=== PATIENT | male | born 1960 | race Caucasian/White ===

== ENCOUNTER 2016-06-29 03:26 | Emergency (ER) | payer BC, OTHER ==
--- NOTE | 2016-06-29 03:54 | EDM.PDOC ---
ED HPI Trauma - General Chief Complaint: Lower Extremity Injury/Pain Stated Complaint: INJURY TO LEFT FOOT Time Seen by Provider: 06/29/16 03:44 Source: Reports: Patient History Limitations: Reports: No limitations - History of Present Illness INITIAL COMMENTS - FREE TEXT/NARRATIVE: 56-year-old male arrives in the ED in the accompaniment of his . Patient reports that he went to bed about 10:00 and slept well until about 12:30 when he woke with severe pain in his left leg. States he feels like her something standing on the top of his dorsal foot radiates along the medial aspect of his leg and posterior aspect of his leg up to the left medial groin area. He knows of no injuries. No slips or falls. He did use a pillow bike exercise machine and ALT, Chasidy 2 days ago but is otherwise doesn't hurt at all. Pain is sharp shooting and worsens with certain position changes of the legs such as flexing the knee and flexing at the hip. No pain in his back. There is some paresthesias in the in in the dorsal aspect of his foot area. Pain is currently 10 out of 10.has had previous surgery on his left foot and sometimes limps when he's been walking for a period of time. However the foot has been gradually getting better. Symptom Onset Date: 06/29/16 Symptom Onset Time: 00:30 Occurred When: this morning Occurred Where: home (pain awoke him from sleep.) Method of Injury: other (no known injuries.) Severity: severe (pain 10 out of 10.) Pain/Injury Location: Reports: lower extremity, left (I her left lower chimney from dorsal foot up to the left medial groin.) Associated Symptoms: Reports: no other symptoms. Denies: headache, lightheadedness, muscle spasms, neck pain, ringing in ears, seizures, shortness of breath Allergies/ADRs: Allergies No Known Allergies Allergy (Verified 06/29/16 03:41) Home Medications: Ambulatory Orders Diclofenac Sodium [Voltaren] 50 mg PO TIDMEALS #24 tab.ec 06/29/16 Rosuvastatin [Crestor] 10 mg PO ASDIRECTED 06/29/16 [Confirmed 06/29/16] oxyCODONE HCl/Acetaminophen [Percocet 5-325 mg Tablet] 1 - 2 each PO Q4H PRN # 20 tablet 06/29/16 Past Medical History Cardiovascular History: Reports: High cholesterol, [place] - Infectious Disease History Infectious Disease History: Reports: Chicken pox (as a child) - Past Surgical History Musculoskeletal Surgical History: Reports: Shoulder surgery, Other (see below) Other Musculoskeletal Surgeries/Procedures:: "foot surgery" Social & Family History - Tobacco Use Smoking Status *Q: Never Smoker - Caffeine Use Caffeine Use: Reports: None - Recreational Drug Use Recreational Drug Use: No - Living Situation & Occupation Living situation: Reports: Occupation: employed (works for [employer]) Review of Systems - Review of Systems Review Of Systems: See Below Constitutional: Reports: no symptoms Eyes: Reports: no symptoms Ears: Reports: no symptoms Nose: Reports: no symptoms Mouth/Throat: Reports: no symptoms Respiratory: Reports: no symptoms Cardiovascular: Reports: no symptoms GI/Abdominal: Reports: No symptoms Genitourinary: Reports: no symptoms Musculoskeletal: Reports: leg pain (entire left leg hurts from dorsal foot to left groin. See history of present illness) Skin: Reports: no symptoms Neurological: Reports: paresthesia (some paresthesias dorsal aspect of the left foot) Psychiatric: Reports: no symptoms ( the) Trauma Exam - Physical Exam Exam: See Below Exam Limited By: No limitations General Appearance: Reports: alert, WD/WN, moderate distress (in obvious discomfort and he can hardly put any weight on his left foot. It seems to be worse when he stretches out his Achilles tendon.) Head: Reports: atraumatic, normocephalic Cardiovascular: Reports: normal peripheral pulses, regular rate, rhythm, no edema, no murmur, other (in particular the pulses to the dorsal aspect of the left foot are completely normal both posterior tibialis and dorsalis pedis.) GI/Abdominal: Reports: normal bowel sounds, soft, non tender, no organomegaly, other (abdominal pain could be elicited.). Denies: distended, tenderness, guarding, rebound (Male) Exam: No hernia Back: Reports: full range of motion, normal inspection, non-tender, CVA tenderness (R), CVA tenderness (L), decreased range of motion, other (no tenderness in either SI joint.) Extremities: Reports: no evidence of injury, normal range of motion (has full range of motion but certain movements such as flexion of the knee and flexion of the hip make the pain shoot down the leg any more severe fashion.), pain with movement, unable to bear weight (able to put any weight on his left foot due to pain in her dorsal foot and along the medial posterior aspect of his leg up to the groin.). Denies: no pedal edema, pelvis stable, bony-point tenderness , joint effusion, pedal edema, tenderness Neurologic: Reports: no motor/sensory deficits, normal mood/affect, oriented x 3 Skin: Reports: Normal color, Warm/dry - Liam Coma Score Best Eye Response (Othello): (4) open spontaneously Best Verbal Response (Liam): (5) oriented Best Motor Response (Liam): (6) obeys commands Liam Total: 15 Course - Vital Signs Last Recorded V/S: Last Vital Signs Temp 37.0 C 06/29/16 03:39 Pulse 65 06/29/16 05:22 Resp 16 06/29/16 05:22 BP 138/93 H 06/29/16 05:22 Pulse Ox 98 06/29/16 05:22 - Orders/Labs/Meds Orders: Active Orders 24 hr Category Date Time Status Femur Min 2V Lt [CR] Stat Exams 06/29/16 04:02 Taken Tibia Fibula Lt [CR] Stat Exams 06/29/16 04:02 Taken VL Duplex Lwr Ext Veins Ltd Lt [US] Stat Exams 06/29/16 04:03 Taken Ketorolac [Toradol] Med 06/29/16 04:15 Active 30 mg IVPUSH ONETIME Sodium Chloride 0.9% [Normal Saline] 1,000 ml Med 06/29/16 04:00 Active IV ASDIRECTED Medication Orders Sodium Chloride (Normal Saline) 1,000 mls @ 100 mls/hr IV ASDIRECTED LAQUITA Last Admin: 06/29/16 04:22 Dose: 100 mls/hr Ketorolac Tromethamine (Toradol) 30 mg IVPUSH ONETIME LAQUITA Last Admin: 06/29/16 04:19 Dose: 30 mg Labs: Laboratory Tests 06/29/16 06/29/16 06/29/16 Range/Units 04:10 04:10 04:10 WBC 9.30 H (4.23-9.07) K/mm3 RBC 5.25 (4.63-6.08) M/mm3 Hgb 15.6 (13.7-17.5) gm/L Hct 45.4 (40.1-51.0) % MCV 86.5 (79.0-92.2) fl MCH 29.7 (25.7-32.2) pg MCHC 34.4 (32.2-35.5) g/dl RDW Std Deviation 40.0 (35.1-43.9) fL Plt Count 188 (163-337) K/mm3 MPV 9.4 (9.4-12.3) fl Neutrophils % (Manual) 61 H (40-60) % Band Neutrophils % 0 (0-10) % Lymphocytes % (Manual) 32 (20-40) % Atypical Lymphs % 0 % Monocytes % (Manual) 5 (2-10) % Eosinophils % (Manual) 2 (0.8-7.0) % Basophils % (Manual) 0 L (0.2-1.2) Platelet Estimate Adequate Plt Morphology Comment Normal RBC Morph Comment Normal PT 10.0 (8.0-13.0) SECONDS INR 0.92 D-Dimer, Quantitative 0.21 (0.19-0.59) mg/L Sodium 141 (136-145) mEq/L Potassium 4.2 (3.5-5.1) mEq/L Chloride 108 H (98-107) mEq/L Carbon Dioxide 24 (21-32) mEq/L Anion Gap 13.2 (5-15) BUN 26 H (7-18) mg/dL Creatinine 0.9 (0.7-1.3) mg/dL Est Cr Clr Drug Dosing 96.88 mL/min Estimated GFR (MDRD) > 60 (>60) mL/min BUN/Creatinine Ratio 28.9 H (14-18) Glucose 120 H (74-106) mg/dL Uric Acid 4.6 (3.5-7.2) mg/dL Calcium 10.1 (8.5-10.1) mg/dL Total Bilirubin 0.2 (0.2-1.0) mg/dL AST 36 (15-37) U/L ALT 97 H (16-63) U/L Alkaline Phosphatase 80 (46-116) U/L Total Protein 7.2 (6.4-8.2) g/dl Albumin 4.0 (3.4-5.0) g/dl Globulin 3.2 gm/dL Albumin/Globulin Ratio 1.3 (1-2) Meds: Medications Generic Name Dose Route Start Last Admin Trade Name Silvina PRN Reason Stop Dose Admin Sodium Chloride 1,000 mls @ 100 mls/hr 06/29/16 04:00 06/29/16 04:22 Normal Saline IV 100 mls/hr ASDIRECTED LAQUITA Administration Ketorolac Tromethamine 30 mg 06/29/16 04:15 06/29/16 04:19 Toradol IVPUSH 30 mg ONETIME LAQUITA Administration Discontinued Medications Generic Name Dose Route Start Last Admin Trade Name Silvina PRN Reason Stop Dose Admin Hydromorphone HCl 1 mg 06/29/16 04:00 06/29/16 04:16 Dilaudid IVPUSH 06/29/16 04:01 1 mg ONETIME ONE Administration Metoclopramide HCl 10 mg 06/29/16 04:01 06/29/16 04:12 Reglan IVPUSH 06/29/16 04:02 10 mg ONETIME ONE Administration - Radiology Interpretation Free Text/Narrative:: 56-year-old male presents the ED with a most unusual presentation. He reports he went to sleep at 10:00 last night and was feeling fine. Oral from sleep around 12:30 with severe pain in his entire left lower cavity. Seems to start in the medial aspect of the left groin and radiates all the way down the foot to the dorsal aspect of the foot. At times he feels as if somebody is stepping on top of his foot. Hardly able to put any weight on the foot as when he does dorsiflexion of the foot it seems to make the pain much worse. Similar to pain worse with full flexion at the knee or full flexion at the hip suggesting a muscle-splitting source. This most unusual to radiate in separate places for no apparent reason. The pain most likely is neurogenic in origin. He would be a knee lumbar 3-4 distribution.pain is intense he rates a 10 on a 10. There is no sign of any embolus to the foot or left lower chest remedied. Good color and good pulses. There is no swelling or edema to suggest DVT. Mild tenderness along palpation of the medial gastrocnemius muscle. I cannot localize pain to either hamstring or quadriceps tendons. Plan IV will be started at normal saline 100 mils per hour. Given 1 mg of Dilaudid for pain relief with Reglan 10 mg IV and Toradol 30 mg IV for pain relief. A going to x-ray the femur and the tib-fib to make sure there are no occult bone abnormalities although this would be very rare. DVT ultrasound will be performed on the left extremity as well to rule out a DVT. Labs were ordered to include a d-dimer and uric acid. His pain may well be neurogenic in normal have to watch out for the development of shingles in the next 4-5 days. - Re-Assessments/Exams Free Text/Narrative Re-Assessment/Exam: 06/29/16 04:50 x-rays of the femur knee tib-fib and most of the midfoot that I can visualize are completely normal. Also portions of the left hemipelvis appear normal. Pain apparently is quite a bit better after the IV Dilaudid. He is currently in the ultrasound suite. 06/29/16 05:05ultrasound was reported by the biomedical engineering technician to be completely normal in the entire left leg. This would correlate with his d-dimer that came back at less than 0.21. Hematology is normal. White count is 9.3. Hemoglobin 15.6 platelets 180,000. Coags are normal. Awaiting the chemistry and the CRP 06/29/16 05:29 chemistry was essentially normal as well. Sodium 141 potassium 4.2 chloride 108 bicarbonate 24. Anion gap is 13.2. Glucose is 120. ALT was mildly elevated at 97. Therefore no metabolic abnormality was identified to cause his neurogenic pain and left lower extremity. The etiology of his pain remains unclear at this time. It appears to be neurogenic and not coming from his back. It appears to be following the L3-L4 nerve root distribution dermatome. Patient advised to keep it out for development of shingles rash over the next 5-7 days. In the meantime I will place him on Percocet tabs 5 325 one or 2 every 4-6 hours needed for pain relief x20 tabs. Voltaren 50 mg 3 times a day with meals x8 days. He will follow up with his personal care physician or return to the ER if condition worsens in any way or fails to improve in 7 days time. Departure - Departure Time of Disposition: 05:22 Disposition: Home, Self-Care 01 Condition: fair Clinical Impression: Neurogenic pain of left lower extremity Prescriptions: Diclofenac Sodium [Voltaren] 50 mg PO TIDMEALS #24 tab.ec oxyCODONE HCl/Acetaminophen [Percocet 5-325 mg Tablet] 1 - 2 each PO Q4H PRN # 20 tablet PRN Reason: pain relief. Instructions: Neuropathic Pain Referrals: PCP,Not In Area [Primary Care Provider] - Forms: ED Department Discharge, Return to Work/School Form Additional Instructions: evaluation in the emergency room tonight in regards to awakening from sleep with severe pain in the left lower extremity. Pain travels from the medial left groin down the inside and posterior aspect of the leg to the foot. Pain is described as sharp burning and shooting or lancinating. This suggests nerve inflammationfor unclear reasons. X-rays of the femur the left hemipelvis and the lower leg were done including most of the foot and no bony abnormalities are evident. Ultrasound of the leg was done to rule out any blood clots and none were found. Similarly screening test for blood clots rate clotting the body turned out to be negative. Normal white count normal red cell count. Normal chemistry there for no other reason could be identified as to the cause of your pain. The severity of the pain strongly suggest I nerve or neurogenic source. Pain is following the lumbar 3 IV nerve root dermatome that supplies the skin along the inside and back of the leg. Sometimes shingles Will start out this way with severe pain with rash developing 4-5 days later. Therefore monitor for any rash development over the next week. If the rash recurs she'll need to return to medical care to get antiviral medication. In the meantime activity as tolerated. Suggest use of Voltaren 50 mg 3 times daily for the next 8 days to relieve pain and inflammation. Start her pain medication Percocet 5 325 mg tabs one or 2 every 4-6 hours as needed for pain relief. However if these tablets are required for pain relief he cannot operate a motor vehicle or operate machinery etc. followup with personal care physician or return to the ED if pain is not markedly improved in 3-5 days duration or sooner if the pain worsens. - My Orders Last 24 Hours: My Active Orders 06/29/16 04:00 Sodium Chloride 0.9% [Normal Saline] 1,000 ml IV ASDIRECTED 06/29/16 04:02 Femur Min 2V Lt [CR] Stat Tibia Fibula Lt [CR] Stat 06/29/16 04:03 VL Duplex Lwr Ext Veins Ltd Lt [US] Stat 06/29/16 04:15 Ketorolac [Toradol] 30 mg IVPUSH ONETIME - Assessment/Plan Last 24 Hours: My Active Orders 06/29/16 04:00 Sodium Chloride 0.9% [Normal Saline] 1,000 ml IV ASDIRECTED 06/29/16 04:02 Femur Min 2V Lt [CR] Stat Tibia Fibula Lt [CR] Stat 06/29/16 04:03 VL Duplex Lwr Ext Veins Ltd Lt [US] Stat 06/29/16 04:15 Ketorolac [Toradol] 30 mg IVPUSH ONETIME
[2016-06-29] MEDS ORDERED: Sodium Chloride 0.9% 1,000 ML IV SCH (04:00)
[2016-06-29] MEDS ORDERED: HYDROmorphone 1 MG/ML Syringe IVPUSH ONE (04:00)
[2016-06-29] MEDS ORDERED: Metoclopramide 10 MG/2 ML SDV IVPUSH ONE (04:01)
[2016-06-29] MEDS ORDERED: Ketorolac 30 MG/ML SDV IVPUSH SCH (04:15)
[2016-06-29 05:25] VITALS: BP 138/93
--- NOTE | 2016-06-29 07:08 | US ---
Left lower extremity deep venous ultrasound: Duplex and color flow imaging was obtained of the left common femoral, proximal greater saphenous, superficial femoral, popliteal, posterior tibial and peroneal veins. Right common femoral vein also evaluated. Comparison: No previous venous study. Findings: Normal phasic flow, augmentation and compression are seen. Impression: 1. No findings of deep venous thrombosis seen within the left lower extremity or within the right common femoral vein. Diagnostic code #1
--- NOTE | 2016-06-29 07:20 | CR ---
Left tibia and fibula: AP and lateral views of the left tibia and fibula were obtained. Comparison: No previous study. Plantar spur is seen. Calcification noted within the distal Achilles tendon at its attachment to the calcaneus as an incidental note. No acute fracture or other abnormality is seen. Impression: 1. Calcaneal spurs. 2. Left tibia and fibula study is otherwise unremarkable. Diagnostic code #2
--- NOTE | 2016-06-29 07:33 | CR ---
Left femur: AP and lateral views of the left femur were obtained. Comparison: No previous femur study. Small spur at the attachment of the quadriceps tendon to the patella is incidentally noted. Joint space within the left hip and within the knee are preserved. No acute fracture or other abnormality is seen. Impression: 1. Small patellar spur. 2. Nothing acute identified on two-view left femur study. Diagnostic code #2
== END 2016-06-29 05:30 | disposition home or self-care (01) ==
LOC: JD.ED 03:26
DX: M79.605 Pain in left leg (principal); E78.00 Pure hypercholesterolemia, unspecified; I25.2 Old myocardial infarction; Z79.899 Other long term (current) drug therapy
CPT/HCPCS: 36415; 73552; 73590; 80053; 84550; 85025; 85379; 85610; 93971; 96361; 96374; 96375; 99284; J1170; J1885; J2765; J7040

== ENCOUNTER 2020-08-23 19:45 | Emergency (ER) | payer OTHER ==
[2020-08-23] MEDS ORDERED: Sodium Chloride 0.9% 10 ML Syringe FLUSH PRN (20:30)
--- NOTE | 2020-08-23 21:29 | EDM.PDOC ---
ED HPI GENERAL MEDICAL PROBLEM - General Chief Complaint: Respiratory Problem Stated Complaint: HEAD PAIN EYE PAIN GUILLERMINA HANSEN 4DAYS Time Seen by Provider: 08/23/20 20:14 Source of Information: Reports: Patient History Limitations: Reports: No Limitations, Other (ED vital signs reveal a temp of 96.9, pulse of 93, respiratory rate of 16, blood pressure 135/91, pulse ox 95% on room air) - History of Present Illness INITIAL COMMENTS - FREE TEXT/NARRATIVE: 60-year-old male presents the emergency department with a 4-day history of headache, fatigue, chills, decreased appetite, shortness of breath with exertion, and generalized body aches. He states this started about 4 days ago with a headache that he noted behind both of his eyes he states the headache radiates to the frontal portion of his head and to the top. He states that the top of his head is even sensitive to touch. He states this then progressed into fatigue, decreased appetite. He developed shortness of breath approximately 3 days ago. He states he notices even when he walks a short distance he is winded. He also states he has been unable to really eat or drink anything. He denies any nausea, vomiting, abdominal pain or diarrhea. Of note he does have a history of hypertension for which he no longer takes any of his medications. Denies any increased swelling in his feet or ankles. Denies orthopnea. He has not had Covid. He has not had his Covid vaccine. Headache Pain Score (Numeric/FACES): 8 - Related Data Allergies Allergy/AdvReac Type Severity Reaction Status Date / Time No Known Allergies Allergy Verified 08/23/20 19:57 Home Meds: Home Meds Rosuvastatin [Crestor] 10 mg PO WEEKLY 06/29/16 [History] Aspirin [Ecotrin EC] 81 mg PO DAILY 08/23/20 [History] Past Medical History Cardiovascular History: Reports: High Cholesterol, [place] - Infectious Disease History Infectious Disease History: Reports: Chicken Pox - Past Surgical History HEENT Surgical History: Reports: Naso-Sinus Surgery, Other (See Below) Other HEENT Surgeries/Procedures: throat surgery Cardiovascular Surgical History: Reports: Other (See Below) Other Cardiovascular Surgeries/Procedures: angiogram GI Surgical History: Reports: Hernia Repair/Other Musculoskeletal Surgical History: Reports: Shoulder Surgery, Other (See Below) Other Musculoskeletal Surgeries/Procedures:: "foot surgery" Social & Family History - Tobacco Use Tobacco Use Status *Q: Never Tobacco User Second Hand Smoke Exposure: No - Caffeine Use Caffeine Use: Reports: None - Recreational Drug Use Recreational Drug Use: No - Living Situation & Occupation Living situation: Reports: Occupation: Employed ED ROS GENERAL - Review of Systems Review Of Systems: See Below Constitutional: Reports: Chills, Malaise, Fatigue, Decreased Appetite. Denies: Fever HEENT: Reports: No Symptoms Respiratory: Reports: Shortness of Breath, Cough (With exertion). Denies: Wheezing, Pleuritic Chest Pain, Sputum Cardiovascular: Reports: Dyspnea on Exertion. Denies: Chest Pain, Edema, Orthopnea, Palpitations Endocrine: Reports: Fatigue GI/Abdominal: Reports: Decreased Appetite. Denies: Abdominal Pain, Constipation, Diarrhea, Nausea, Vomiting : Reports: No Symptoms Musculoskeletal: Reports: Other (Generalized body aches) Skin: Reports: No Symptoms Neurological: Reports: Headache (Behind his eyes, frontal and top of his head) Psychiatric: Reports: No Symptoms Hematologic/Lymphatic: Reports: No Symptoms Immunologic: Reports: No Symptoms ED EXAM, GENERAL - Physical Exam Exam: See Below Exam Limited By: No Limitations General Appearance: Alert, WD/WN, No Apparent Distress Eye Exam: Bilateral Eye: PERRL Ears: Normal External Exam, Hearing Grossly Normal Nose: Normal Inspection Throat/Mouth: Normal Inspection, Normal Lips, Normal Voice, No Airway Compromise Head: Atraumatic, Normocephalic Neck: Normal Inspection, Supple, Non-Tender, Full Range of Motion Respiratory/Chest: No Respiratory Distress, Normal Breath Sounds, No Accessory Muscle Use, Chest Non-Tender, Crackles (Crackles noted to right middle lobe). No: Lungs Clear Cardiovascular: Normal Peripheral Pulses, Regular Rate, Rhythm, No Edema, No Murmur Peripheral Pulses: 2+: Radial (L), Radial (R) GI/Abdominal: Normal Bowel Sounds, Soft, Non-Tender, No Distention (Male) Exam: Deferred Rectal (Males) Exam: Deferred Back Exam: Normal Inspection, Full Range of Motion Extremities: Normal Inspection, Normal Range of Motion, Non-Tender, No Pedal Edema, Normal Capillary Refill Neurological: Alert, Oriented, Normal Cognition Psychiatric: Normal Affect, Normal Mood Skin Exam: Warm, Dry, Intact, Normal Color Lymphatic: No Adenopathy #1 Interpretation EKG Date: 08/23/20 Time: 20:04 Rhythm: NSR Rate (Beats/Min): 93 [place]: Normal P-Wave: Present QRS: Normal ST-T: Normal QT: Normal Comparison: NA - No Prior EKG EKG Interpretation Comments: Per Dr. Gloria interpretation: sinus rhythim @ 93; short pr interval Course - Vital Signs Text/Narrative:: 60-year-old male who presents with 4-day history of headache, shortness of breath, cough, fatigue, generalized body aches, and decreased appetite. Patient has not had Covid this year nor is he had the Covid vaccination. I have ordered labs, EKG, chest x-ray and Covid, influenza A and influenza B swabs. Last Recorded V/S: Last Vital Signs Temp 96.9 F 08/23/20 19:55 Pulse 93 08/23/20 19:55 Resp 16 08/23/20 19:55 BP 135/91 H 08/23/20 19:55 Pulse Ox 95 08/23/20 19:55 - Orders/Labs/Meds Orders: Active Orders 24 hr Category Date Time Status EKG 12 Lead [EKG Documentation Completion] [RC] STAT Care 08/23/20 20:01 Active Chest 1V Frontal [CR] Stat Exams 08/23/20 20:30 Taken Sodium Chloride 0.9% [Saline Flush] Med 08/23/20 20:30 Active 10 ml FLUSH ASDIRECTED PRN Saline Lock Insert [OM.PC] Stat Oth 08/23/20 20:30 Ordered Medication Orders Sodium Chloride (Sodium Chloride 0.9% 10 Ml Syringe) 10 ml FLUSH ASDIRECTED PRN PRN Reason: Keep Vein Open Last Admin: 08/23/20 20:45 Dose: 10 ml Documented by: ELAINE Labs: Laboratory Tests 08/23/20 08/23/20 08/23/20 Range/Units 20:40 20:40 20:40 WBC 2.99 L (4.23-9.07) K/mm3 RBC 5.46 (4.63-6.08) M/mm3 Hgb 16.0 (13.7-17.5) gm/dl Hct 47.3 (40.1-51.0) % MCV 86.6 (79.0-92.2) fl MCH 29.3 (25.7-32.2) pg MCHC 33.8 (32.2-35.5) g/dl RDW Std Deviation 40.4 (35.1-43.9) fL Plt Count 124 L D (163-337) K/mm3 MPV 9.6 (9.4-12.3) fl Neut % (Auto) 35.1 (34.0-67.9) % Lymph % (Auto) 52.2 (21.8-53.1) % [place] % (Auto) 11.4 (5.3-12.2) % Eos % (Auto) 0.3 L (0.8-7.0) Baso % (Auto) 0.7 (0.1-1.2) % Neut # (Auto) 1.05 L (1.78-5.38) K/mm3 Lymph # (Auto) 1.56 (1.32-3.57) K/mm3 [place] # (Auto) 0.34 (0.30-0.82) K/mm3 Eos # (Auto) 0.01 L (0.04-0.54) K/mm3 Baso # (Auto) 0.02 (0.01-0.08) K/mm3 Manual Slide Review Abnormal smear D-Dimer, Quantitative 0.31 (0.19-0.50) mg/L Sodium (136-145) mEq/L Potassium (3.5-5.1) mEq/L Chloride (98-107) mEq/L Carbon Dioxide (21-32) mEq/L Anion Gap (5-15) BUN (7-18) mg/dL Creatinine (0.7-1.3) mg/dL Est Cr Clr Drug Dosing mL/min Estimated GFR (MDRD) (>60) mL/min BUN/Creatinine Ratio (14-18) Glucose (74-106) mg/dL Calcium (8.5-10.1) mg/dL Magnesium (1.8-2.4) mg/dl Total Bilirubin (0.2-1.0) mg/dL AST (15-37) U/L ALT (16-63) U/L Alkaline Phosphatase (46-116) U/L Troponin I (0.00-0.056) ng/mL C-Reactive Protein (<1.0) mg/dL Total Protein (6.4-8.2) g/dl Albumin (3.4-5.0) g/dl Globulin gm/dL Albumin/Globulin Ratio (1-2) Influenza Type A RNA Negative (NEGATIVE) Influenza Type B RNA Negative (NEGATIVE) SARS-CoV-2 RNA (SUSANA) Positive H (NEGATIVE) 08/23/20 Range/Units 20:40 WBC (4.23-9.07) K/mm3 RBC (4.63-6.08) M/mm3 Hgb (13.7-17.5) gm/dl Hct (40.1-51.0) % MCV (79.0-92.2) fl MCH (25.7-32.2) pg MCHC (32.2-35.5) g/dl RDW Std Deviation (35.1-43.9) fL Plt Count (163-337) K/mm3 MPV (9.4-12.3) fl Neut % (Auto) (34.0-67.9) % Lymph % (Auto) (21.8-53.1) % [place] % (Auto) (5.3-12.2) % Eos % (Auto) (0.8-7.0) Baso % (Auto) (0.1-1.2) % Neut # (Auto) (1.78-5.38) K/mm3 Lymph # (Auto) (1.32-3.57) K/mm3 [place] # (Auto) (0.30-0.82) K/mm3 Eos # (Auto) (0.04-0.54) K/mm3 Baso # (Auto) (0.01-0.08) K/mm3 Manual Slide Review D-Dimer, Quantitative (0.19-0.50) mg/L Sodium 139 (136-145) mEq/L Potassium 3.8 (3.5-5.1) mEq/L Chloride 102 (98-107) mEq/L Carbon Dioxide 25 (21-32) mEq/L Anion Gap 15.8 H (5-15) BUN 18 (7-18) mg/dL Creatinine 1.1 (0.7-1.3) mg/dL Est Cr Clr Drug Dosing 75.58 mL/min Estimated GFR (MDRD) > 60 (>60) mL/min BUN/Creatinine Ratio 16.4 (14-18) Glucose 115 H (74-106) mg/dL Calcium 8.8 (8.5-10.1) mg/dL Magnesium 2.1 (1.8-2.4) mg/dl Total Bilirubin 0.4 (0.2-1.0) mg/dL AST 71 H (15-37) U/L ALT 125 H (16-63) U/L Alkaline Phosphatase 58 (46-116) U/L Troponin I < 0.017 (0.00-0.056) ng/mL C-Reactive Protein 0.9 (<1.0) mg/dL Total Protein 7.2 (6.4-8.2) g/dl Albumin 3.7 (3.4-5.0) g/dl Globulin 3.5 gm/dL Albumin/Globulin Ratio 1.1 (1-2) Influenza Type A RNA (NEGATIVE) Influenza Type B RNA (NEGATIVE) SARS-CoV-2 RNA (SUSANA) (NEGATIVE) Meds: Medications Generic Name Dose Route Start Last Admin Trade Name Freq PRN Reason Stop Dose Admin Sodium Chloride 10 ml 08/23/20 20:30 08/23/20 20:45 Sodium Chloride 0.9% 10 Ml Syringe FLUSH 10 ml ASDIRECTED PRN Administration Keep Vein Open - Re-Assessments/Exams Free Text/Narrative Re-Assessment/Exam: 08/23/20 22:21 Hematology reveals a WBC of 2.99, hemoglobin 16.0, hematocrit 47.3, platelet count 124, coagulation reveals a D-dimer of 0.31, chemistry reveals a sodium of 139, potassium 3.8, carbon dioxide 25, anion gap 15.8, BUN 18, creatinine 1.1, glucose 115, magnesium 2.1, total bili 0.4, AST 71, ALT 125, alk phos 58, troponin less than 0.017, C-reactive protein 0.9 Serology reveals influenza a and B are negative, Covid positive vRad radiologist impression portable view of the chest: Minimal subsegmental platelike atelectasis at the left lung base. Otherwise, clear lungs. Patient will be discharged home with recommendations that he quarantine for 10 days. Departure - Departure Time of Disposition: 22:24 Disposition: Home, Self-Care 01 Condition: Fair Clinical Impression: COVID-19 - Discharge Information Instructions: COVID-19 Frequently Asked Questions, COVID-19: What Your Test Results Mean - [facility] Referrals: PCP,None [Primary Care Provider] - Forms: ED Department Discharge Additional Instructions: You were seen in the emergency department today with complaints of headache, shortness of breath, fatigue, generalized body aches, chills, and decreased appetite. Labs, EKG, and a chest x-ray were completed. EKG and chest ray x-ray were essentially unremarkable. Lab work does show that you have Covid. Your Covid swab was positive. You did not have a heart attack. Go home and rest. You will need to quarantine for 10 days. Prior to coming out of quarantine you will need to be retested for Covid. The [facility] will be in contact with you. Recommend that you increase your p.o. intake drink lots of fluids like water and Gatorade. Also recommend that you supplement your meals with protein drinks if you have little to no appetite to get some nutrition in your body. May take Tylenol 650 mg alternating with ibuprofen 600 mg every 4 hours for the headache pain. He will likely experience shortness of breath. Should this worsen significantly you may need to be reevaluated in the emergency department. Should your condition worsen or change, do not hesitate returning to the emergency department. Sepsis Event Note (ED) - Evaluation Sepsis Screening Result: No Definite Risk - Focused Exam Vital Signs: Vital Signs Temp Pulse Resp BP Pulse Ox 08/23/20 19:55 96.9 F 93 16 135/91 H 95 - My Orders Last 24 Hours: My Active Orders 08/23/20 20:01 EKG 12 Lead [EKG Documentation Completion] [RC] STAT 08/23/20 20:30 Chest 1V Frontal [CR] Stat Sodium Chloride 0.9% [Saline Flush] 10 ml FLUSH ASDIRECTED PRN Saline Lock Insert [OM.PC] Stat - Assessment/Plan Last 24 Hours: My Active Orders 08/23/20 20:01 EKG 12 Lead [EKG Documentation Completion] [RC] STAT 08/23/20 20:30 Chest 1V Frontal [CR] Stat Sodium Chloride 0.9% [Saline Flush] 10 ml FLUSH ASDIRECTED PRN Saline Lock Insert [OM.PC] Stat
[2020-08-23 21:59] LABS: CORONAVIRUS COVID-19 NAA POSITIVE (NEGATIVE)
[2020-08-23 23:11] VITALS: BP 141/93; PULSE 88
--- NOTE | 2020-08-24 07:14 | CR ---
Chest: Portable view of the chest was obtained. Comparison: No prior chest imaging is available. Linear density is noted within the left lung base. This is most likely due to atelectasis. Lungs otherwise are clear with no acute parenchymal change. Heart size and mediastinum are normal. Bony structure shows nothing acute. Impression: 1. Probable left basilar atelectasis. 2. Nothing acute is otherwise seen on portable chest x-ray. Diagnostic code #2 I agree with preliminary report from [facility], finalized on 08/23/20, 10:17 PM CDT, code 1
== END 2020-08-23 22:30 | disposition home or self-care (01) ==
LOC: JD.ED 19:45
DX: U07.1 COVID-19 (principal); E78.00 Pure hypercholesterolemia, unspecified; I25.2 Old myocardial infarction; Z79.82 Long term (current) use of aspirin; Z79.899 Other long term (current) drug therapy
CPT/HCPCS: 0240U; 36415; 71045; 80053; 83735; 84484; 85025; 85379; 86140; 93005; 99285

== ENCOUNTER 2021-03-29 03:57 | Emergency (ER) | payer OTHER ==
[2021-03-29 04:07] VITALS: BP 160/90; PULSE 92
[2021-03-29] MEDS ORDERED: Ketorolac 15 MG/ML SDV IVPUSH ONE (04:09)
--- NOTE | 2021-03-29 04:11 | EDM.PDOC ---
ED [facility] GENERAL MEDICAL PROBLEM - General Chief Complaint: Flank Pain Stated Complaint: RT SIDE PAIN Time Seen by Provider: 03/29/21 04:09 Source of Information: Reports: Patient History Limitations: Reports: No Limitations - History of Present Illness INITIAL COMMENTS - FREE TEXT/NARRATIVE: Patient is a 60-year-old male presented to the emergency room with a chief complaint of abrupt onset of left lower quadrant abdominal pain around 1:00 this morning. Patient states the pain awoke him from sleep. The pain is not gotten any better or worse. Patient reports pain is severe. Denies any associated fevers, chills, nausea, vomiting. Patient does report earlier in the day having some dark urine. However this seems to have resolved. He denies any dysuria or diarrhea. No prior history of kidney stones. No interventions performed prior to arrival. Left Flank Pain Score (Numeric/FACES): 10 - Related Data Allergies Allergy/AdvReac Type Severity Reaction Status Date / Time No Known Allergies Allergy Verified 03/29/21 04:07 Home Meds: Home Meds Rosuvastatin [Crestor] 10 mg PO WEEKLY 06/29/16 [History] Aspirin [Ecotrin EC] 81 mg PO DAILY 08/23/20 [History] Past Medical History Cardiovascular History: Reports: High Cholesterol, [place] - Infectious Disease History Infectious Disease History: Reports: Chicken Pox - Past Surgical History HEENT Surgical History: Reports: Naso-Sinus Surgery, Other (See Below) Other HEENT Surgeries/Procedures: throat surgery Cardiovascular Surgical History: Reports: Other (See Below) Other Cardiovascular Surgeries/Procedures: angiogram GI Surgical History: Reports: Hernia Repair/Other Musculoskeletal Surgical History: Reports: Shoulder Surgery, Other (See Below) Other Musculoskeletal Surgeries/Procedures:: "foot surgery" Social & Family History - Caffeine Use Caffeine Use: Reports: None - Living Situation & Occupation Living situation: Reports: Occupation: Employed ED ROS GENERAL - Review of Systems Review Of Systems: See Below Free Text/Narrative/Comment: In addition to that documented in the HPI above, the additional ROS was obtained: Constitutional: Denies fevers or chills Eyes: Denies vision changes ENMT: Denies sore throat CV: Denies chest pain Resp: Denies SOB GI: Denies vomiting or diarrhea : Denies painful urination MSK: Denies recent trauma Skin: Denies new rashes Neuro: Denies new numbness or tingling or weakness Endocrine: Denies unexpected weight loss Heme: Denies bleeding disorders ED EXAM, GI/ABD - Physical Exam Exam: See Below Text/Narrative:: I have reviewed the triage vital signs Const: Writhing in bed, moaning. Well nourished, well developed, appears stated age Eyes: no conjunctival injection HENT: No signs of trauma or swelling, Neck supple without meningismus CV: Regular Rate Rhythm, Warm, well-perfused extremities RESP: Unlabored respiratory effort GI: soft, non-tender, non-distended, no masses MSK: No gross deformities appreciated Skin: Warm, dry. 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 Sensation and motor function of extremities grossly intact. Psych: Appropriate mood and affect. Course - Vital Signs Last Recorded V/S: Last Vital Signs Temp 36.4 C 03/29/21 04:05 Pulse 92 03/29/21 04:05 Resp 18 03/29/21 04:05 BP 160/90 H 03/29/21 04:05 Pulse Ox 100 03/29/21 04:05 - Orders/Labs/Meds Orders: Active Orders 24 hr Category Date Time Status UA W/MICROSCOPIC [URIN] Stat Lab 03/29/21 06:08 Results Labs: Laboratory Tests 03/29/21 03/29/21 03/29/21 Range/Units 04:08 04:08 06:08 WBC 10.57 H (4.23-9.07) K/mm3 RBC 5.54 (4.63-6.08) M/mm3 Hgb 16.4 (13.7-17.5) gm/dl Hct 48.8 (40.1-51.0) % MCV 88.1 (79.0-92.2) fl MCH 29.6 (25.7-32.2) pg MCHC 33.6 (32.2-35.5) g/dl RDW Std Deviation 40.8 (35.1-43.9) fL Plt Count 237 D (163-337) K/mm3 MPV 9.5 (9.4-12.3) fl Neut % (Auto) 71.2 H (34.0-67.9) % Lymph % (Auto) 17.8 L (21.8-53.1) % [place] % (Auto) 6.9 (5.3-12.2) % Eos % (Auto) 2.7 (0.8-7.0) Baso % (Auto) 1.1 (0.1-1.2) % Neut # (Auto) 7.52 H (1.78-5.38) K/mm3 Lymph # (Auto) 1.88 (1.32-3.57) K/mm3 [place] # (Auto) 0.73 (0.30-0.82) K/mm3 Eos # (Auto) 0.29 (0.04-0.54) K/mm3 Baso # (Auto) 0.12 H (0.01-0.08) K/mm3 Sodium 142 (136-145) mEq/L Potassium 4.6 (3.5-5.1) mEq/L Chloride 105 (98-107) mEq/L Carbon Dioxide 27 (21-32) mEq/L Anion Gap 14.6 (5-15) BUN 23 H (7-18) mg/dL Creatinine 1.3 (0.7-1.3) mg/dL Est Cr Clr Drug Dosing 63.95 mL/min Estimated GFR (MDRD) 57 (>60) mL/min BUN/Creatinine Ratio 17.7 (14-18) Glucose 140 H (70-99) mg/dL Calcium 9.5 (8.5-10.1) mg/dL Total Bilirubin 0.4 (0.2-1.0) mg/dL AST 25 (15-37) U/L ALT 82 H (16-63) U/L Alkaline Phosphatase 72 (46-116) U/L Total Protein 7.3 (6.4-8.2) g/dl Albumin 4.5 (3.4-5.0) g/dl Globulin 2.8 gm/dL Albumin/Globulin Ratio 1.6 (1-2) Lipase 143 (73-393) U/L Urine Color Yellow (Yellow) Urine Appearance Clear (Clear) Urine pH 6.0 (5.0-8.0) Ur Specific [place] 1.025 (1.005-1.030) Urine Protein Negative (Negative) Urine Glucose (UA) Negative (Negative) Urine Ketones Negative (Negative) Urine Occult Blood 3+ H (Negative) Urine Nitrite Negative (Negative) Urine Bilirubin Negative (Negative) Urine Urobilinogen 0.2 (0.2-1.0) Ur Leukocyte Esterase Negative (Negative) Meds: Medications Discontinued Medications Generic Name Dose Route Start Last Admin Trade Name Silvina PRN Reason Stop Dose Admin Lactated Ringer's 1,000 mls @ 1,000 mls/hr 03/29/21 04:42 03/29/21 04:54 Ringers, Lactated IV 03/29/21 05:41 1,000 mls/hr .BOLUS ONE Administration Ketorolac Tromethamine 15 mg 03/29/21 04:09 03/29/21 04:15 Ketorolac 15 Mg/Ml Sdv IVPUSH 03/29/21 04:10 15 mg ONETIME ONE Administration Morphine Sulfate 6 mg 03/29/21 05:04 03/29/21 05:09 Morphine 4 Mg/Ml Syringe IVPUSH 03/29/21 05:05 6 mg ONETIME ONE Administration Departure - Departure Time of Disposition: 06:20 Disposition: Home, Self-Care 01 Clinical Impression: Ureteric colic - Discharge Information Instructions: Renal Colic Referrals: PCP,Not In Area [Primary Care Provider] - Forms: ED Department Discharge Additional Instructions: I recommend following up with the neurology clinic in [place]. Their phone number is . Take pain medication and Flomax as directed. Ensure you drink plenty of fluids. Return to the emergency room for uncontrolled pain, fevers or any emergent concerns. Sepsis Event Note (ED) - Evaluation Sepsis Screening Result: No Definite Risk - Focused Exam Vital Signs: Vital Signs Temp Pulse Resp BP Pulse Ox 03/29/21 04:05 36.4 C 92 18 160/90 H 100 - My Orders Last 24 Hours: My Active Orders 03/29/21 06:08 UA W/MICROSCOPIC [URIN] Stat - Assessment/Plan Last 24 Hours: My Active Orders 03/29/21 06:08 UA W/MICROSCOPIC [URIN] Stat Assessment:: Patient is a 60-year-old male presented to emergency room with left lower abdominal pain. Unremarkable ER course. Pain was controlled with administration of Toradol and morphine. Differential diagnosis considered include but not limited to kidney stone, pyelonephritis, diverticulitis, colitis, pancreatitis. Laboratory study work-up demonstrates evidence of hematuria without other significant abnormality. BUN is slightly elevated indicating possibly a degree of dehydration. CT scan performed demonstrates evidence of a 5 mm left ureteral stone with some proximal hydronephrosis. However, there is no evidence of systemic infection or urinary tract infection. Since pain is controlled, patient will be discharged with urology follow-up. Is given a prescription for pain medication of Flomax. Return precautions discussed as usual. Patient agrees with plan of care.
[2021-03-29] MEDS ORDERED: Lactated Ringers 1,000 ML IV ONE (04:42)
[2021-03-29] MEDS ORDERED: Morphine 4 MG/ML Syringe IVPUSH ONE (05:04)
--- NOTE | 2021-03-29 06:27 | CT ---
CT abdomen and pelvis Technique: Multiple axial sections were obtained from above the dome of the diaphragm inferiorly through the pubic symphysis. Intravenous and oral contrast were not utilized. Study has been performed as a ureteral stone protocol. Comparison: No prior abdominal or pelvic imaging is available. Findings: 5 mm calculus is identified within the left ureter at the UPJ causing slight proximal hydronephrosis. Small adjacent nonobstructing calculus is noted within the left kidney. Two nonobstructing calculi are also noted within the right kidney. Largest stone measures approximately 4-5 mm. No additional ureteral stones are seen. Visualized lung bases show nothing acute. Noncontrast appearance of the liver shows no focal abnormality. Gallbladder contains no calcified gallstones. Spleen size is normal. Pancreas is unremarkable. Abdominal aorta shows no aneurysm. Slight atherosclerotic calcification is seen. No retroperitoneal adenopathy or mesenteric abnormalities are seen. Appendix is seen which is normal. No pelvic mass or adenopathy is seen. Mild diverticuli are seen within the descending and sigmoid colon with no findings of diverticulitis. No free fluid or inflammatory change is seen. Bone window settings were reviewed which show endplate spurring scattered throughout the spine. No acute osseous abnormality is appreciated. Impression: 1. 5 mm stone within the left ureter located at the UPJ causing proximal hydronephrosis. 2. Nonobstructing calculi are seen within both kidneys. 3. Diverticulosis is seen without diverticulitis. Other incidental findings as noted above. Diagnostic code #3 I agree with preliminary report from [facility] finalized on 03/29/21, 6:36 AM [employer], code 1
== END 2021-03-29 06:41 | disposition home or self-care (01) ==
LOC: JD.ED 03:57
DX: N23 Unspecified renal colic (principal); I25.2 Old myocardial infarction; E78.00 Pure hypercholesterolemia, unspecified; Z79.82 Long term (current) use of aspirin
CPT/HCPCS: 36415; 74176; 80053; 81001; 83690; 85025; 96374; 96375; 99284; J1885; J2270; J7120

== ENCOUNTER 2024-01-18 19:31 | Emergency (ER) | payer OTHER ==
[2024-01-18 19:38] VITALS: BP 170/95; PULSE 80
[2024-01-18] MEDS ORDERED: Naloxone 0.4 MG/ML SDV IVPUSH PRN ×3 (19:55→21:30)
[2024-01-18 19:57] LABS: BASOPHILS ABSOLUTE AUTO 0.1 K/mm3 (0.0-0.2); BASOPHILS PERCENT AUTO 0.6 % (0.0-1.0); EOSINOPHILS PERCENT AUTO 0.1 % (0.0-6.0); HEMOGLOBIN 16.6 gm/dl (14.0-18.0); IMMATURE GRAN ABSOLUTE AUTO 0.03 K/mm3 (0.00-0.05); IMMATURE GRAN PERCENT AUTO 0.2 % (0.0-0.4); LYMPHOCYTES ABSOLUTE AUTO 0.7 K/mm3 (1.0-4.8); LYMPHOCYTES PERCENT AUTO 5.1 % (24.0-44.0); MEAN CORPUSCULAR HEMOGLOBIN 29.9 pg (28.0-32.0); MEAN CORPUSCULAR HGB CONC 34.6 g/dl (32.0-36.0); MEAN CORPUSCULAR VOLUME 86.5 fl (83.0-99.0); MEAN PLATELET VOLUME 9.2 fl (9.4-12.4); MONOCYTES ABSOLUTE AUTO 0.4 K/mm3 (0.0-0.8); MONOCYTES PERCENT AUTO 3.3 % (0.0-8.0); NEUTROPHILS ABSOLUTE AUTO 11.8 K/mm3 (1.8-7.7); NEUTROPHILS PERCENT AUTO 90.7 % (41.0-71.0); PLATELET COUNT,PLT 225 K/mm3 (150-400); RED BLOOD CELL COUNT 5.55 M/mm3 (4.52-5.90); WHITE BLOOD CELL COUNT,WBC 12.98 K/mm3 (3.9-11.3)
[2024-01-18] MEDS: HYDROmorphone 0.5 MG/0.5 ML Syringe IVPUSH ONE (19:57)
[2024-01-18] MEDS: Sodium Chloride 0.9% 10 ML Syringe FLUSH ONE (19:58)
[2024-01-18 20:12] LABS: A/G RATIO 1.4 (1-2); ALBUMIN 4.5 g/dl (3.4-5.0); ANION GAP 16.4 (5-15); BILIRUBIN TOTAL 0.6 mg/dL (0.2-1.0); BUN/CREATININE RATIO 12.5 (14-18); C-REACTIVE PROTEIN 0.22 mg/dL (<0.30); CALCIUM 9.5 mg/dL (8.5-10.1); CREATININE 1.2 mg/dL (0.7-1.3); EST CRCL DRUG DOSING (CG) 73.06 mL/min; POTASSIUM,K 4.4 mEq/L (3.5-5.1); PROTEIN TOTAL,TP 7.8 g/dl (6.4-8.2)
[2024-01-18] MEDS: Morphine 4 MG/ML Syringe IVPUSH ONE ×2 (20:57→21:35)
[2024-01-18] MEDS: Sodium Chloride 0.9% 1,000 ML IV ONE (20:57)
[2024-01-18] MEDS: Iopamidol 612 MG/ML 100 ML Bottle IVPUSH ONE (21:27)
[2024-01-18] MEDS: Cefdinir 300 MG Cap PO ONE (22:42)
[2024-01-18] MEDS: Acetaminophen/oxyCODONE 325-5 MG Tab PO ONE (22:42)
[2024-01-18] MEDS: Ondansetron 4 MG/2 ML SDV IVPUSH ONE (22:42)
== END 2024-01-18 23:04 | disposition home or self-care (01) ==
LOC: JD.ED 19:31
DX: N20.2 Calculus of kidney with calculus of ureter (principal); Z79.82 Long term (current) use of aspirin; Z79.899 Other long term (current) drug therapy
CPT/HCPCS: 36415; 74177; 80053; 83690; 85025; 86140; 96361; 96374; 96375; 96376; 99284; A9270; J1170; J2270; J2405; J3490; J7030; Q9967